=== PATIENT | female | born 1995 | race Caucasian/White ===

== ENCOUNTER 2019-01-05 09:23 | Emergency (ER) | payer MEDICAID ==
[~2019-01-05] VITALS: Ht 154.9 cm; Wt 53.3 kg
[2019-01-05 09:32] VITALS: BP 101/71
--- NOTE | 2019-01-05 09:40 | NUR ---
PT AMBULATED TO ER BED 01
--- NOTE | 2019-01-05 10:03 | NUR ---
GENERALIZED ABD PAIN, LOW BACK PAIN, PAINFUL URINATION AND INCREASED URINARY FREQUENCY X 5 DAYS. FOUL SMELLING BROWN VAGINAL DISCHARGE AND PELVIC PAIN X 8 DAYS. PT STATES PAIN 9/10 AT THIS TIME. DENIES N/V/D. DENIES FEVER. AFEBRILE AT THIS TIME. HX: DENIES RX: MOTRIN PRN LMP 12/02/18
[2019-01-05] MEDS ORDERED: cefTRIAXone 250 MG in LIDOCAINE MPF 1% - 5 mL VIAL 0.9 ML IM ONE (10:20)
--- NOTE | 2019-01-05 10:30 | NUR ---
Pelvic exam performed by Dr. Handley with NAZ Vickers present at bedside for entire examination. Patient tolerated procedure well. Patient assisted to position of comfort after examination.
[2019-01-05 10:36] LABS: BILIRUBIN,URINE NEGATIVE (NEGATIVE); BLOOD, URINE NEGATIVE (NEGATIVE); COLOR,URINE YELLOW (YELLOW); LEUKOCYTE ESTERASE ,URINE NEGATIVE (NEGATIVE); NITRITE, URINE NEGATIVE (NEGATIVE); UGLUCOSE NEGATIVE (NEGATIVE)
[2019-01-05 10:47] LABS: APPEARANCE,URINE HAZY (CLEAR); RBC,URINE NONE SEEN /HPF (0-5); WBC,URINE 0-5 /HPF (0-5)
--- NOTE | 2019-01-05 12:13 | NUR ---
Patient appears to be resting comfortably in bed. Vital Signs within normal limits. Pt states pain in lower abdomen is 3/10 at this time.
[2019-01-05] MEDS ORDERED: AZITHROMYCIN 250 MG TAB PO ONE (13:15)
[2019-01-05 13:37] VITALS: BP 122/61
--- NOTE | 2019-01-05 13:37 | NUR ---
ENCOURAGED TO F/U WITH OB WRITTEN IN HER DC PAPERS---ALSO TO HAVE HER SEXUAL PARTNER EXAMINED BY PMD BEFORE CONTINUING SEXUAL RELATIONS Patient discharged with v/s stable. Written and verbal after care instructions given and explained. Patient verbalized understanding. Ambulatory with steady gait. All questions addressed prior to discharge. Advised to follow up with PMD.
[2019-01-07 13:15] LABS: CHLAMYDIA TRACHOMATIS AMP DNA POSITIVE (NEGATIVE)
== END 2019-01-05 13:37 | disposition home or self-care (01) ==
LOC: MED 09:23
DX: R10.30 Lower abdominal pain, unspecified (principal); M54.5 Low back pain; R30.0 Dysuria; R35.0 Frequency of micturition; R11.0 Nausea; R63.0 Anorexia; F17.210 Nicotine dependence, cigarettes, uncomplicated
CPT/HCPCS: 36415; 76817; 81001; 81025; 84702; 87070; 87205; 87210; 87491; 96372; 99284; J0696; J2001; Q0092

== ENCOUNTER 2019-01-07 12:38 | Emergency (ER) | payer SELFPAY ==
[~2019-01-07] VITALS: Ht 154.9 cm; Wt 53.7 kg
[2019-01-07 12:46] VITALS: BP 109/54
--- NOTE | 2019-01-07 12:56 | NUR ---
PT BIB SELF TO THE ED FOR CHECK UPS. PT FOUND THAT SHE IS YESTERDAY. STATES CRAMPING PAIN OF 4/10. DENIES N/V/D. DENIES RECENT FEVER. LUNGS CLEAR. ABDOMEN SOFT, ROUND AND NON-TENDER. ACTIVE BOWEL SOUND. PT STATES SHE IS HAVING BROWNISH DISCHARGE MIED WITH BLOOD SOMETIMES FOR 8 DAYS. PT IS NOT TAKING ANY VITAMINS. DENIES NAY MEDICAL HX.
--- NOTE | 2019-01-07 13:06 | NUR ---
DR. HALLMAN BEDSIDE EVALUATING PT
--- NOTE | 2019-01-07 13:06 | NUR ---
PT BEING EVALUATED BY ER AT THIS TIME.
--- NOTE | 2019-01-07 13:26 | NUR ---
PT REFUSING BLOOD DRAW AT THIS TIME
[2019-01-07] MEDS ORDERED: AZITHROMYCIN 250 MG TAB PO ONE (13:35)
[2019-01-07] MEDS ORDERED: cefTRIAXone 250 MG in LIDOCAINE MPF 1% - 5 mL VIAL 0.9 ML IM ONE (13:35)
--- NOTE | 2019-01-07 13:50 | NUR ---
US TECH AT THE BEDSIDE.
[2019-01-07 15:04] VITALS: BP 110/52
--- NOTE | 2019-01-07 15:08 | NUR ---
Patient discharged with v/s stable. Written and verbal after care instructions given and explained. Patient alert, oriented and verbalized understanding of instructions. Ambulatory with steady gait. All questions addressed prior to discharge. ID band removed. Patient advised to follow up with PMD. Rx of IBU given. Patient educated on indication of medication including possible reaction and side effects. Opportunity to ask questions provided and answered.
== END 2019-01-07 15:08 | disposition home or self-care (01) ==
LOC: MED 12:38
DX: O02.0 Blighted ovum and nonhydatidiform mole (principal); O98.811 Other maternal infectious and parasitic diseases complicating pregnancy, first trimester; A74.9 Chlamydial infection, unspecified; Z3A.01 Less than 8 weeks gestation of pregnancy
CPT/HCPCS: 76801; 81002; 81025; 96372; 99284; J0696; J2001; Q0092

== ENCOUNTER 2019-01-22 23:10 | Emergency (ER) | payer SELFPAY ==
[~2019-01-22] VITALS: Ht 152.4 cm; Wt 54.2 kg
[2019-01-22 23:20] VITALS: BP 112/65
--- NOTE | 2019-01-22 23:25 | NUR ---
TO LOBBY A/W BED AMBULATORY
--- NOTE | 2019-01-22 23:50 | NUR ---
PATIENT AMBULATED TO ER BED 10.
--- NOTE | 2019-01-22 23:55 | NUR ---
PT IS A 23 Y/O FEMALE WHO PRESENTS TO THE ED C/O ABD PAIN. PT STATES THAT SYMPTOMS HAVE BEEN BOTHERING HER X2 DAYS. PT REPORTS 7/10 ACHING UPPER ABD PAIN THAT DOES NOT RADIATE. PT DENIES CP, SOB, REPORTS NAUSEA/DIARRHEA DENIES VOMITING. PT AWAKE AND ALERT, RR EVEN/UNLABORED. PT REPOSITIONED FOR COMFORT, BED IN LOWEST POSITION. ER MD DR. FU NOTIFIED. WILL CONTINUE TO MONITOR.
--- NOTE | 2019-01-22 23:59 | NUR ---
PATIENT UNABLE TO PROVIDE URINE AT THIS TIME.
[2019-01-23 00:48] LABS: BASOPHILS % (AUTO) 0.3 % (0.0-2.0); EOSINOPHILS # (AUTO) 0.2 K/uL (0-0.4); EOSINOPHILS % (AUTO) 2.8 % (0.0-4.0); HEMATOCRIT 37.6 % (36-48); HEMOGLOBIN 12.7 g/dL (12.0-16.0); LYMPHOCYTES % (AUTO) 16.6 % (20.5-51.1); MEAN CORPUSCULAR HEMOGLOBIN 32 pg (27-31); MEAN CORPUSCULAR HGB CONC 34 g/dL (33-37); MEAN CORPUSCULAR VOLUME 94.3 fL (80-94); MONOCYTES # (AUTO) 0.4 K/uL (0.8-1.0); MONOCYTES % (AUTO) 6.7 % (1.7-9.3); NEUTROPHILS # (AUTO) 4.5 K/uL (1.8-7.7); NEUTROPHILS % (AUTO) 73.6 % (42.2-75.2); PLATELET COUNT (AUTO) 214 K/uL (140-450); RED BLOOD CELL COUNT(AUTO) 3.98 MIL/uL (4.20-5.40); RED CELL DISTRIBUTION WIDTH 13.2 % (11.6-13.7); WHITE BLOOD COUNT (AUTO) 6.1 K/uL (4.8-10.8)
[2019-01-23 00:54] LABS: ANION GAP 11.4 (8-16); CARBON DIOXIDE 24.9 mmol/L (21-32); CREATININE 0.6 mg/dL (0.6-1.3); POTASSIUM 3.3 mmol/L (3.5-5.1)
[2019-01-23 00:59] LABS: ALBUMIN 3.4 g/dL (3.4-5.0); TOTAL BILIRUBIN 0.4 mg/dL (0.0-1.0)
[2019-01-23 01:39] LABS: APPEARANCE,URINE CLEAR (CLEAR); BILIRUBIN,URINE NEGATIVE (NEGATIVE); BLOOD, URINE NEGATIVE (NEGATIVE); COLOR,URINE YELLOW (YELLOW); LEUKOCYTE ESTERASE ,URINE NEGATIVE (NEGATIVE); NITRITE, URINE NEGATIVE (NEGATIVE); UGLUCOSE NEGATIVE (NEGATIVE)
[2019-01-23 01:43] LABS: RBC,URINE 0-5 /HPF (0-5); WBC,URINE 0-5 /HPF (0-5)
--- NOTE | 2019-01-23 02:18 | NUR ---
US AT BEDSIDE.
--- NOTE | 2019-01-23 03:00 | NUR ---
PT AROUSABLE TO VOICE, PT STATES SHE FEELS GOOD AND PAIN IS NOT AT BAD ANYMORE; STATES 3/10, STATES COPING.
--- NOTE | 2019-01-23 03:55 | NUR ---
Patient discharged with v/s stable. Patient acting appropriatly, states she wants to go home; states pain 0/10 at this time. Written and verbal after care instructions given and explained. Patient alert, oriented and verbalized understanding of instructions. Ambulatory with steady gait. All questions addressed prior to discharge. ID band removed. Patient advised to follow up with PMD. Rx of [place] given. Patient educated on indication of medication including possible reaction and side effects. Opportunity to ask questions provided and answered.
[2019-01-23 05:01] VITALS: BP 119/68
== END 2019-01-23 03:55 | disposition home or self-care (01) ==
LOC: MED 23:10
DX: O03.9 Complete or unspecified spontaneous abortion without complication (principal); Z3A.01 Less than 8 weeks gestation of pregnancy; Z79.891 Long term (current) use of opiate analgesic; Z79.2 Long term (current) use of antibiotics; Z79.1 Long term (current) use of non-steroidal anti-inflammatories (NSAID); Z79.899 Other long term (current) drug therapy
CPT/HCPCS: 36415; 76801; 80053; 81001; 81025; 84702; 85025; 99284; Q0092

== ENCOUNTER 2019-01-26 10:53 | Inpatient (IN) | payer MEDICAID, OTHER ==
[~2019-01-26] VITALS: Ht 154.9 cm; Wt 54.4 kg
[2019-01-26 10:54] VITALS: BP 100/61
--- NOTE | 2019-01-26 11:10 | NUR ---
ERMD AT BEDSIDE
--- NOTE | 2019-01-26 11:45 | NUR ---
C/O BILAT ACHING LOWER ABD PAIN 8/10 W/ NAUSEA X2 DAYS. PER PT, SHE HAS A MISCARRAIGE 1 MONTH AGO AND STARTED HAVING MILD VAGINAL BLEEDING AT HOME. SHE WAS SEEN AT URGENT CARE WHERE THEY REFFERED HER TO THE ED BECAUSE HER LABS WERE SHOWING hCG STILL. PT DENIED VOMITING/FEVER/DIARRHEA. SKIN IS COOL/PINK/DRY, VSS AT THIS TIME. BED IN LOW POSITION, SIDE RAIL UP X1.
--- NOTE | 2019-01-26 11:50 | NUR ---
URINE COLLECTED AND SENT TO LAB
[2019-01-26 12:02] LABS: APPEARANCE,URINE CLEAR (CLEAR); BILIRUBIN,URINE NEGATIVE (NEGATIVE); BLOOD, URINE 1+ (NEGATIVE); COLOR,URINE YELLOW (YELLOW); LEUKOCYTE ESTERASE ,URINE TRACE (NEGATIVE); NITRITE, URINE NEGATIVE (NEGATIVE); PH,URINE 5.5 (5.0-9.0); UGLUCOSE NEGATIVE (NEGATIVE)
[2019-01-26 12:11] LABS: BASOPHILS % (AUTO) 0.1 % (0.0-2.0); EOSINOPHILS # (AUTO) 0.1 K/uL (0-0.4); EOSINOPHILS % (AUTO) 1.7 % (0.0-4.0); HEMATOCRIT 37.3 % (36-48); HEMOGLOBIN 12.8 g/dL (12.0-16.0); LYMPHOCYTES # (AUTO) 1.1 K/uL (2.5-16.5); MEAN CORPUSCULAR HEMOGLOBIN 32 pg (27-31); MEAN CORPUSCULAR HGB CONC 34 g/dL (33-37); MEAN CORPUSCULAR VOLUME 94.3 fL (80-94); MONOCYTES # (AUTO) 0.3 K/uL (0.8-1.0); MONOCYTES % (AUTO) 5.2 % (1.7-9.3); PLATELET COUNT (AUTO) 196 K/uL (140-450); RED BLOOD CELL COUNT(AUTO) 3.96 MIL/uL (4.20-5.40); RED CELL DISTRIBUTION WIDTH 13.5 % (11.6-13.7); WHITE BLOOD COUNT (AUTO) 6.6 K/uL (4.8-10.8)
[2019-01-26 12:17] LABS: ANION GAP 15.7 (8-16); CARBON DIOXIDE 23.2 mmol/L (21-32); CREATININE 0.7 mg/dL (0.6-1.3); POTASSIUM 3.9 mmol/L (3.5-5.1)
[2019-01-26 12:22] LABS: ALBUMIN 3.6 g/dL (3.4-5.0); TOTAL BILIRUBIN 0.2 mg/dL (0.0-1.0)
--- NOTE | 2019-01-26 12:30 | NUR ---
PT RESTING IN BED, NO NEW NEEDS AT THIS TIME
[2019-01-26 13:01] LABS: RBC,URINE 0-5 /HPF (0-5)
--- NOTE | 2019-01-26 13:30 | NUR ---
PT AWAKE AND TALKING ON PHONE IN BED.
[2019-01-26] MEDS ORDERED: NACL 0.9% 1,000 ML IV SCH (14:54)
[2019-01-26] MEDS ORDERED: ONDANSETRON 4 MG/2 ML VIAL IM/IVP PRN (14:55)
[2019-01-26] MEDS ORDERED: MORPHINE SULFATE 2 MG/ML SYR IVP PRN (14:55)
[2019-01-26] MEDS ORDERED: LORazepam 2 MG/ML VIAL IM/IVP PRN (14:55)
[2019-01-26] MEDS ORDERED: ACETAMINOPHEN 325 MG TAB PO PRN (14:55)
[2019-01-26] MEDS ORDERED: DOCUSATE SODIUM 100 MG GELCAP PO PRN (14:55)
[2019-01-26] MEDS ORDERED: HYDROcodone/APAP 5/325 MG 1 TAB TAB PO PRN (14:55)
--- NOTE | 2019-01-26 15:00 | NUR ---
PT SPEAKING WITH DR. IBARRA AT BEDSIDE
[2019-01-26] MEDS ORDERED: MORPHINE SULFATE 2 MG/ML SYR IVP SCH (15:25)
[2019-01-26] MEDS ORDERED: ONDANSETRON 4 MG/2 ML VIAL IVP SCH (15:25)
[2019-01-26 15:41] LABS: PROTHROMBIN TIME 9.8 secs (10.8-13.4)
--- NOTE | 2019-01-26 15:45 | NUR ---
Patient will be admitted to care of DR. CEBALLOS. Admited to M/S. Will go to room 119B. Belongings list completed. Report to NAZ ZARAGOZA.
--- NOTE | 2019-01-26 15:55 | NUR ---
PT ARRIVED ON THE UNIT. PT IS STABLE VITALS HAVE BEEN TAKEN. ALL SAFETY MEASURES ARE IN PLACE WILL CONTINUE TO MONITOR.
[2019-01-26 16:06] LABS: CHOL/HDL RATIO 2.7 (1-4.5); PHOSPHORUS 4.3 mg/dL (2.5-4.9); THYROID STIMULATING HORMONE 0.76 uIU/mL (0.34-3.74)
[2019-01-26 16:12] LABS: BARBITURATE, URINE NEG. ng/ml (NEG <=200); BENZODIAZEPINE, URINE NEG. ng/mL (NEG <=200); CANNABINOID, URINE NEG. ng/mL (NEG <=50); COCAINE, URINE NEG. ng/mL (NEG <=300); OPIATE, URINE NEG. ng/mL (NEG <=2000); PHENCYCLIDINE SCREEN,URINE NEG. ng/mL (NEG <=25)
[2019-01-26 16:35] VITALS: BP 89/50
--- NOTE | 2019-01-26 17:35 | NUR ---
FREQUENT ROUNDING ON PATIENT PT IS STABLE AND IN NO APPARENT DISTRESS. ALL SAFETY MEASURES ARE IN PLACE. WILL CONTINUE TO MONITOR.
[2019-01-26] MEDS: LACTATED RINGERS 1,000 ML IV SCH (17:42)
[2019-01-26] MEDS ORDERED: NACL 0.9% 250 ML IV SCH (17:55)
[2019-01-26] MEDS: cefOXitin 2,000 MG in DEXTROSE 5% 100 ML IV SCH ×2 (18:29→23:46)
--- NOTE | 2019-01-26 18:30 | NUR ---
PLACED PT ON TELE MONITOR PER ORDERS. STATED THAT SHE WANTS TO PERFORM A PELVIC EXAM. WENT AND GOT ALL THE SUPPLIES FOR HER.
--- NOTE | 2019-01-26 19:20 | NUR ---
ENDORSED PT TO MILKING MACHINE TECHNICIAN NURSE. PT IS STABLE AND IN NO APPARENT DISTRESS. ALL SAFETY MEASURES ARE IN PLACE. IVF INFUSING IV SITE IS PATENT AND HAS NO SIGNS OF INFILTRATION OR INFLAMMATION.
--- NOTE | 2019-01-26 19:21 | NUR ---
RECEIVED BEDSIDE REPORT FROM DAY SHIFT NURSE. PT AAOX4. ABLE TO AMBULATE. NO SOB OR RESP DISTRESS NOTED ON RA. IV SITE LAC 20G, PATENT AND INTACT. STANDARD PRECAUTION IN PLACE. SKIN INTACT. WARM AND DRY TO TOUCH. POC REVIEW AND DISCUSSED. BED IN LOW POSITION, CALL LIGHT WITHIN REACH.
[2019-01-26 20:00] VITALS: BP 106/54
[2019-01-26] MEDS: CLINDAMYCIN 900 MG in DEXTROSE 5% 100 ML IV SCH (20:21)
--- NOTE | 2019-01-26 21:00 | NUR ---
GIVEN SCHEDULED MED DR. ORDERED. PT TOLERATED WELL.
--- NOTE | 2019-01-26 23:46 | NUR ---
GIVEN SCHEDULED MED DR ORDERED. PT TOLERATED WELL. WILL CONTINUE TO MONITOR.
[2019-01-27] VITALS: BP 106/54
[2019-01-27] MEDS: LACTATED RINGERS 1,000 ML IV SCH ×4 (00:45→18:18)
--- NOTE | 2019-01-27 02:15 | NUR ---
PT SLEEPING IN BED COMFORTABLY. NO S/S OF SOB OR ANY RESP DISTRESS NOTED. BED IN LOW POSITION. CALL LIGHT WITHIN REACH.
[2019-01-27 04:00] VITALS: BP 111/44
[2019-01-27] MEDS: CLINDAMYCIN 900 MG in DEXTROSE 5% 100 ML IV SCH ×3 (05:01→22:44)
--- NOTE | 2019-01-27 05:01 | NUR ---
GIVEN SCHEDULE MEDS. PT TOLERATED WELL.
[2019-01-27] MEDS: cefOXitin 2,000 MG in DEXTROSE 5% 100 ML IV SCH ×2 (06:08→18:18)
--- NOTE | 2019-01-27 07:05 | NUR ---
ENDORSED PT TO DAY SHIFT NURSE. PT IN STABLE CONDITION.
--- NOTE | 2019-01-27 07:23 | NUR ---
RECEIVED BEDSIDE REPORT FROM BUCKET HOOKER NURSE ZOYA AT PT BEDSIDE. PT AAOX4. ABLE TO AMBULATE. NO SOB OR RESP DISTRESS NOTED ON RA. IV SITE LAC 20G, PATENT AND INTACT. PT VERBALIZED PAIN TOLERABLE TO ABD. NO PAIN MEDICATIONS WANTED AT THIS TIME. STANDARD PRECAUTION IN PLACE. SKIN INTACT. WARM AND DRY TO TOUCH. DISCUSSED POC WITH PT AND PT VERBALIZED UNDERSTANDING. PT NPO SINCE AWAITING SURGERY THIS MORNING. BED IN LOW POSITION, CALL LIGHT WITHIN REACH. WILL ROUND FREQUENTLY ON PT.
[2019-01-27 07:35] LABS: BASOPHILS % (AUTO) 0.3 % (0.0-2.0); EOSINOPHILS # (AUTO) 0.1 K/uL (0-0.4); EOSINOPHILS % (AUTO) 3.3 % (0.0-4.0); HEMATOCRIT 34.3 % (36-48); HEMOGLOBIN 11.7 g/dL (12.0-16.0); LYMPHOCYTES # (AUTO) 1.1 K/uL (2.5-16.5); LYMPHOCYTES % (AUTO) 28.2 % (20.5-51.1); MEAN CORPUSCULAR HEMOGLOBIN 32 pg (27-31); MEAN CORPUSCULAR HGB CONC 34 g/dL (33-37); MEAN CORPUSCULAR VOLUME 93.6 fL (80-94); MONOCYTES # (AUTO) 0.3 K/uL (0.8-1.0); MONOCYTES % (AUTO) 8.5 % (1.7-9.3); NEUTROPHILS # (AUTO) 2.3 K/uL (1.8-7.7); NEUTROPHILS % (AUTO) 59.7 % (42.2-75.2); PLATELET COUNT (AUTO) 165 K/uL (140-450); RED BLOOD CELL COUNT(AUTO) 3.67 MIL/uL (4.20-5.40); RED CELL DISTRIBUTION WIDTH 13.3 % (11.6-13.7); WHITE BLOOD COUNT (AUTO) 3.9 K/uL (4.8-10.8)
[2019-01-27 08:00] VITALS: BP 97/52
[2019-01-27 08:39] LABS: MAGNESIUM 1.9 mg/dL (1.8-2.4); PHOSPHORUS 4.7 mg/dL (2.5-4.9)
[2019-01-27 08:41] LABS: ANION GAP 13.3 (8-16); CARBON DIOXIDE 23.9 mmol/L (21-32); POTASSIUM 3.2 mmol/L (3.5-5.1)
[2019-01-27 08:42] LABS: CREATININE 0.8 mg/dL (0.6-1.3)
--- NOTE | 2019-01-27 08:47 | NUR ---
PATIENT HAS BEEN SCREENED AND CATEGORIZED LOW NUTRITION RISK. PATIENT WILL BE SEEN WITHIN 7 DAYS OF ADMISSION. 02/02/[address]
[2019-01-27] MEDS: OXYTOCIN 10 UNITS/ML VIAL ONE ×2 (08:59→11:45)
[2019-01-27] MEDS: LACTOBACILLUS RHAMNOSUS GG 1 EACH CAP PO SCH (09:00)
--- NOTE | 2019-01-27 09:46 | NUR ---
PT TAKEN TO OR FOR SURGERY. PT LEFT IN STABLE CONDITION.
[2019-01-27] MEDS ORDERED: fentaNYL 0.05 MG/ML VIAL ONE (10:08)
[2019-01-27] MEDS ORDERED: DESFLURANE 240 ML BTL INH ONE ×2 (10:10)
[2019-01-27] MEDS ORDERED: DEXAMETHASONE 4 MG/ML VIAL ONE ×2 (10:10)
[2019-01-27] MEDS ORDERED: ONDANSETRON 4 MG/2 ML VIAL ONE ×2 (10:10)
[2019-01-27] MEDS ORDERED: ROCURONIUM 50 MG/5 ML VIAL IV ONE ×2 (10:10)
[2019-01-27] MEDS ORDERED: SUCCINYLCHOLINE CHLORIDE 200 MG/10 ML VIAL IVP ONE ×2 (10:10)
[2019-01-27] MEDS ORDERED: KETOROLAC 30 MG/ML VIAL ONE ×2 (10:10)
[2019-01-27] MEDS ORDERED: PROPOFOL 200 MG/20 ML VIAL IV ONE ×2 (10:10)
[2019-01-27] MEDS ORDERED: HYDROmorphone PFS 2 MG/ML SYR ONE (10:51)
--- NOTE | 2019-01-27 11:26 | NUR ---
PT IN SURGERY. AWAITING FOR PT TO ARRIVE BACK ON UNIT.
[2019-01-27] MEDS ORDERED: HYDROmorphone 1 MG/ML AMP IVP PRN (12:25)
[2019-01-27] MEDS ORDERED: POTASSIUM CHLORIDE 10 MEQ TABER PO SCH (12:30)
[2019-01-27 13:12] VITALS: BP 103/74
--- NOTE | 2019-01-27 13:12 | NUR ---
PT RETURNED FROM SURGERY. VITALS ARE: TEMP-97.4, HR-54, BP-104/74, RR-16, O2 SAT-98%, PAIN-10/10. PT VITALS STABLE AND WITHIN BASELINE. WILL MEDICATE PT WITH APPROPRIATE PAIN MED FOR HER PAIN.
--- NOTE | 2019-01-27 13:32 | NUR ---
DUE TO PT HR BEING TEDDY AND BP ON LOWER SIDE, PER MD ORDERS, TORADOL WILL BE GIVEN FOR PAIN AT THIS TIME.
[2019-01-27] MEDS: KETOROLAC 30 MG/ML VIAL IVP PRN (14:02)
--- NOTE | 2019-01-27 15:57 | NUR ---
PT RESTING IN BED WITH AT BEDSIDE. WILL CONTINUE TO ROUND FREQUENTLY ON PT. BED IN LOW POSITION, CALL LIGHT WITHIN REACH.
[2019-01-27 16:00] VITALS: BP 92/48
--- NOTE | 2019-01-27 18:06 | NUR ---
PT ASLEEP IN BED. AT BEDSIDE. WILL CONTINUE TO MONITOR PT CLOSELY. BED IN LOW POSITION, CALL LIGHT WITHIN REACH.
--- NOTE | 2019-01-27 19:34 | NUR ---
ENDORSED PT TO NURSE OB FOR CONTINUITY OF CARE. PT IN STABLE CONDITION AT THIS TIME.
--- NOTE | 2019-01-27 19:35 | NUR ---
RECEIVED BEDSIDE REPORT FROM AM SHIFT NURSE. PT AAOX4. PT IN BED S/P LAP D/C DUE TO MISCARRIAGE. NO SOB OR RESP DISTRESS NOTED ON RA. IV SITE LAC 20G, PATENT AND INTACT.PAIN MEDS WAS GIVEN WAS GIVEN EARLIER. NO COMPLAINTS OF PAIN AT THIS TIME. W/ 2 LAP INCISIONS ON ABDOMEN, W/ DRESSING IN PLACE, INTACT. DISCUSSED POC STILL IN NPO POST SURGERY. BED IN LOW POSITION, CALL LIGHT WITHIN REACH. WILL MONITOR PT
[2019-01-27 20:00] VITALS: BP 93/52
[2019-01-28] VITALS: BP 95/54
--- NOTE | 2019-01-28 00:01 | NUR ---
C/O OF 7/10 MODERATE PAIN ON SURGICAL SITE, ABDOMEN, MEDICATED W/ DILAUDID
[2019-01-28] MEDS: LACTATED RINGERS 1,000 ML IV SCH (00:05)
--- NOTE | 2019-01-28 00:45 | NUR ---
REASSESSED PATIENT, PAIN DECREASED,. WILL MONITOR PT.
--- NOTE | 2019-01-28 02:00 | NUR ---
FREQUENT ROUNDING DONE, PT SLEEPING AT THIS TIME, NO COMPLAINTS. PT AMBULATORY ABLE TO AMBULATE TO THE BATHROOM. Addendum: 01/28/19 at 0444 by Minerva Saunders RN DELETE NOTE. WRONG PATIENT
--- NOTE | 2019-01-28 02:01 | NUR ---
FREQUENT ROUNDING DONE, PT SLEEPING AT THIS TIME, NO COMPLAINTS. EMPTIED THE WALKER CATHETER
[2019-01-28 04:00] VITALS: BP 112/45
--- NOTE | 2019-01-28 04:04 | NUR ---
VITALS TAKEN, LOW BP AT 95/54 MMHG. PT;S BP HAS BEEN IN THE LOW SIDE, ENCOURAGED TO SIT UP ON BED WILL RETAKE BP LATER
[2019-01-28] MEDS: KETOROLAC 30 MG/ML VIAL IVP PRN (04:38)
[2019-01-28] MEDS: CLINDAMYCIN 900 MG in DEXTROSE 5% 100 ML IV SCH ×3 (05:30→16:38)
[2019-01-28 06:28] LABS: CHLAMYDIA TRACHOMATIS AMP DNA Negative (Negative)
[2019-01-28] MEDS: cefOXitin 2,000 MG in DEXTROSE 5% 100 ML IV SCH ×2 (07:07→18:17)
--- NOTE | 2019-01-28 07:15 | NUR ---
ENDORSED TO NEXT SHIFT FOR CONTINUITY OF CARE. PT STABLE AT THIS TIME
--- NOTE | 2019-01-28 07:20 | NUR ---
RECEIVED PT FROM DIRECT SELLING COUNSELOR NURSE, PT IS AWAKE AND LYING ON THE BED, AMBULATORY, SAFETY PRECAUTION ENFORCED, IV LINE ON THE LEFT AC G. 20 WITH LR INFUSING AT 100ML/HR, INTACT, PT VERBALIZED A PAIN RATE OF 8/10 ON THE ABDOMEN, NO SOB NOTED, WILL MEDICATE AND MONITOR PT.
--- NOTE | 2019-01-28 07:50 | NUR ---
PT IS AWAKE AND VITAL SIGNS CHECKED, BP IS 92/41, PULSE IS 63, O2 SATURATION IS 98%, TEMPERATURE IS 98.6, RESPIRATION SI 18/MIN ON ROOM AIR, DR. ALBERT WAS INFORMED OF BP RESULT AND MD SAID THAT SHE WILL PLACE AN ORDER FOR A BOLUS OF IVF. SURGICAL INCISIONS INTACT AND NO DRAINAGE, WALKER CATHETER IN PLACE. NO SIGN OF DISTRESS NOTED AND WILL MONITOR PT.
[2019-01-28 08:00] VITALS: BP 92/41
[2019-01-28] MEDS ORDERED: NACL 0.9% 250 ML IV SCH (08:20)
[2019-01-28] MEDS: LACTOBACILLUS RHAMNOSUS GG 1 EACH CAP PO SCH (08:29)
--- NOTE | 2019-01-28 08:35 | NUR ---
PT IS AWAKE AND JUST FINISHED WITH HERB CLEAR LIQUIID DIET TRAY, A 250ML OF NS BOLUS AND ORAL MEDICATIONS WERE GIVEN, WILL MONITOR PT.
[2019-01-28 09:56] LABS: BASOPHILS % (AUTO) 0.1 % (0.0-2.0); EOSINOPHILS # (AUTO) 0.1 K/uL (0-0.4); EOSINOPHILS % (AUTO) 1.6 % (0.0-4.0); HEMATOCRIT 35.8 % (36-48); HEMOGLOBIN 12.2 g/dL (12.0-16.0); LYMPHOCYTES % (AUTO) 17.2 % (20.5-51.1); MEAN CORPUSCULAR HEMOGLOBIN 32 pg (27-31); MEAN CORPUSCULAR HGB CONC 34 g/dL (33-37); MEAN CORPUSCULAR VOLUME 94.3 fL (80-94); MONOCYTES # (AUTO) 0.4 K/uL (0.8-1.0); MONOCYTES % (AUTO) 6.6 % (1.7-9.3); NEUTROPHILS # (AUTO) 4.3 K/uL (1.8-7.7); NEUTROPHILS % (AUTO) 74.5 % (42.2-75.2); PLATELET COUNT (AUTO) 169 K/uL (140-450); RED CELL DISTRIBUTION WIDTH 13.2 % (11.6-13.7); WHITE BLOOD COUNT (AUTO) 5.8 K/uL (4.8-10.8)
[2019-01-28 10:26] LABS: ANION GAP 10.6 (8-16); CARBON DIOXIDE 25.6 mmol/L (21-32); CREATININE 0.9 mg/dL (0.6-1.3); MAGNESIUM 1.7 mg/dL (1.8-2.4); PHOSPHORUS 3.7 mg/dL (2.5-4.9); POTASSIUM 3.2 mmol/L (3.5-5.1)
--- NOTE | 2019-01-28 10:35 | NUR ---
WAKLER CATHETER WAS REMOVED NOW, DRAINED 800ML OF URINE IN THE WALKER BAG. VITAL SIGNS RE-CHECKED AND BP IS 91/51, PULSE IS 64, O2 SATURATION IS 98%, NO SIGN OF DISTRESS NOTED AND PT DENIES PAIN AT THIS TIME.
--- NOTE | 2019-01-28 11:50 | NUR ---
CLEOCIN WAS GIVEN TO PT NOW VIA IVPB. WILL MONITOR PT.
[2019-01-28 12:00] VITALS: BP 91/48
--- NOTE | 2019-01-28 14:00 | NUR ---
PT WAS ASSISTED TO AMBULATE IN THE HALLWAY, NO SOB NOTED.
[2019-01-28] MEDS ORDERED: POTASSIUM CHLORIDE 10 MEQ TABER PO SCH (15:00)
[2019-01-28] MEDS ORDERED: MAGNESIUM OXIDE 400 MG TAB PO SCH (15:00)
--- NOTE | 2019-01-28 15:38 | NUR ---
POTASSIUM AND MAGNESIUM ORAL TABLETS WERE GIVEN NOW.
[2019-01-28 16:00] VITALS: BP 109/51
--- NOTE | 2019-01-28 16:38 | NUR ---
PT WAS GIVEN DUE CLEOCIN IVPB NOW.
--- NOTE | 2019-01-28 18:17 | NUR ---
MEFOXIN IVPB WAS GIVEN TO PT NOW.
--- NOTE | 2019-01-28 19:15 | NUR ---
ENDORSED PT TO HYDROLOGIC MODELER NURSE FOR CONTINUITY OF CARE.
--- NOTE | 2019-01-28 19:16 | NUR ---
RECEIVED PT FROM AM SHIFT NURSE, PT IS AWAKE , AO O X 4, AND LYING ON THE BED, AMBULATORY, SAFETY PRECAUTION ENFORCED, IV LINE ON THE LEFT AC G. 20 WITH LR INFUSING AT 100ML/HR, INTACT, PT NO COMPLAINTS OF PAIN ON THE ABDOMINAL SITE, S/P LAP D AND C. NO SOB NOTED, WILL MONITOR PT.
--- NOTE | 2019-01-28 21:00 | NUR ---
RICKIE MCCORMICK, USED INDUSTRIAL ENGINEERING TECHNICIAN [id number] AMILCAR, INFORMED HER THE BENEFITS AND RISKS AND SIDE EFFECTS. PT VERBALIZED UNDERSTANDING Addendum: 01/28/19 at 2106 by Minerva Saunders RN ADMINISTERED AT 2032
[2019-01-28] MEDS ORDERED: IBUPROFEN 600 MG TAB PO PRN (22:00)
[2019-01-29] VITALS: BP 103/50
--- NOTE | 2019-01-29 04:00 | NUR ---
L AC G 20, THROMBOPHLEBITIS NOTED, SWOLLEN. D/ C IVF SITE AND STARTED A NEW ONE ON R HAND G 20. PATENT, INFUSING WELL
--- NOTE | 2019-01-29 04:50 | NUR ---
PT SLEEPING AT THIS TIME, WENT TO THE BATHROOM,AMBULATORY NO COMPLAINTS OF PAIN
[2019-01-29] MEDS ORDERED: methylPREDNISolone SS 125 MG/2 ML VIAL IVP SCH (05:00)
--- NOTE | 2019-01-29 05:15 | NUR ---
VERIFIED W/ DR. MUKHERJEE SOLUMEDROL ORDER. SAID THAT THEY DONT HAVE A SOLUMEDROL ORDER FOR THIS PATIENT. INFORMED TO PLEASE D/C IT.
[2019-01-29] MEDS: cefOXitin 2,000 MG in DEXTROSE 5% 100 ML IV SCH (05:31)
[2019-01-29 06:10] LABS: ANION GAP 13.5 (8-16); CARBON DIOXIDE 23.3 mmol/L (21-32); CREATININE 0.7 mg/dL (0.6-1.3); POTASSIUM 3.8 mmol/L (3.5-5.1)
[2019-01-29 06:15] VITALS: BP 110/45
[2019-01-29 06:21] LABS: BASOPHILS % (AUTO) 0.2 % (0.0-2.0); EOSINOPHILS # (AUTO) 0.2 K/uL (0-0.4); EOSINOPHILS % (AUTO) 3.9 % (0.0-4.0); HEMATOCRIT 34.1 % (36-48); HEMOGLOBIN 11.7 g/dL (12.0-16.0); MEAN CORPUSCULAR HEMOGLOBIN 32 pg (27-31); MEAN CORPUSCULAR HGB CONC 34 g/dL (33-37); MEAN CORPUSCULAR VOLUME 93.7 fL (80-94); MONOCYTES # (AUTO) 0.4 K/uL (0.8-1.0); NEUTROPHILS # (AUTO) 2.6 K/uL (1.8-7.7); NEUTROPHILS % (AUTO) 60.9 % (42.2-75.2); PLATELET COUNT (AUTO) 151 K/uL (140-450); RED BLOOD CELL COUNT(AUTO) 3.64 MIL/uL (4.20-5.40); RED CELL DISTRIBUTION WIDTH 13.2 % (11.6-13.7); WHITE BLOOD COUNT (AUTO) 4.2 K/uL (4.8-10.8)
[2019-01-29 06:24] LABS: MAGNESIUM 1.9 mg/dL (1.8-2.4); PHOSPHORUS 3.9 mg/dL (2.5-4.9)
--- NOTE | 2019-01-29 06:59 | NUR ---
PT AWAKE, A, O X 4, PT IN STABLE CONDITION, WILL ENDORSE TO NEXT SHIFT FOR CONTINUITY OF CARE
--- NOTE | 2019-01-29 07:40 | NUR ---
RECEIVED REPORT FROM REPAIRER HAIRSPRING NURSE. AAOX4, LYING IN BED. LUNG SOUNDS CLEAR THROUGHOUT UPON AUSCULTATION. STOMACH FLAT, SOFT AND NON-DISTENDED. IV RT HAND 22 GA RUNNING IVF PER ORDER. IV DRESSING INTACT, CLEAN AND DRY. NO REPORTS OF VAGINAL BLEEDING. REPORTED PAIN RATE 4/10 TO ABDOMEN, WILL MEDICATE. NO EDEMA NOTED AT THIS TIME. SKIN COLOR IS APPROPRIATE TO ETHNICITY, WARM TO TOUCH. INCISION DRESSING TO ABDOMEN INTACT, CLEAN AND DRY. DISCUSSED PLAN OF CARE WITH PT. PT VERBALIZED UNDERSTANDING. SAFETY MEASURES IN PLACE, BED ON LOW POSITION. CALL LIGHT WITHIN REACH.
[2019-01-29] MEDS: metroNIDAZOLE 500 MG TAB PO SCH ×2 (08:22→12:44)
[2019-01-29] MEDS: LACTOBACILLUS RHAMNOSUS GG 1 EACH CAP PO SCH (08:22)
--- NOTE | 2019-01-29 08:22 | NUR ---
PT VERBALIZED PAIN RATE OF 4/10 TO ABDOMEN. MEDICATION GIVEN TO PT, WILL REASSESS WITHIN 1 HOUR.
--- NOTE | 2019-01-29 09:50 | NUR ---
PT AAOX4, SITTING UP IN BED. BOYFRIEND IS AT BEDSIDE. NO C/O PAIN AT THIS TIME.
[2019-01-29] MEDS ORDERED: METR500T1 PO (10:49)
[2019-01-29] MEDS ORDERED: DOXY100C9 PO (10:49)
[2019-01-29] MEDS ORDERED: IBUP-2213 PO (10:49)
[2019-01-29] MEDS ORDERED: LACT10CA1 PO (10:49)
[2019-01-29] MEDS ORDERED: ACET-9525 PO (10:49)
--- NOTE | 2019-01-29 13:00 | NUR ---
DISCHARGE INSTRUCTIONS, MEDICATIONS AND INCISION CARE GIVEN AND EXPLAINED TO PT USING BLUE PHONE WITH PATCH SANDER NELLY #[id number]. PT VERBALIZED UNDERSTANDING AND QUESTIONS WERE CLARIFIED. MEDICATIONS WERE GIVEN PER ORDER. IV DISCONTINUED, CATHETER INTACT. NO ACTIVE BLEEDING NOTED, PRESSURE APPLIED TO AREA. NO C/O PAIN AT THIS TIME. WILL CONTINUE TO MONITOR.
--- NOTE | 2019-01-29 14:00 | NUR ---
PT DISCHARGED, ACCOMPANIED BY TANYARD WORKER AND SPOUSE WITH STEADY GAIT. OFFERED W/C BUT PT REFUSED. ALL BELONGINGS WITH PT. NAME BAND REMOVED. PT IS STABLE.
[2019-01-30] MEDS ORDERED: methylPREDNISolone SS 40 MG/ML VIAL IVP SCH (09:00)
== END 2019-01-29 14:00 | disposition home or self-care (01) | DRG 770 ==
LOC: MED 10:53 → MTU 14:54
PROVIDERS: ADMIT General Practice; ATTEND General Practice
PROC: 10D18ZZ Extraction of Products of Conception, Retained, Via Natural or Artificial Opening Endoscopic (ICD-10-PCS; principal; 2019-01-27 10:00)
DX: O03.4 Incomplete spontaneous abortion without complication (principal); O23.41 Unspecified infection of urinary tract in pregnancy, first trimester; O99.011 Anemia complicating pregnancy, first trimester; D64.9 Anemia, unspecified
CPT/HCPCS: 36415; 76817; 80048; 80053; 80305; 81001; 81025; 82150; 83036; 83690; 83735; 83880; 84100; 84443; 84702; 85025; 85610; 85730; 87081; 87086; 87491; 88305; 96374; 96375; 99285; J0330; J0694; J1050; J1100; J1170; J1885; J2270; J2405; J2590; J2704; J3010; J3490; J7030; J7060; J7120; Q0092

== ENCOUNTER 2019-02-03 10:54 | Emergency (ER) | payer MEDICAID, OTHER ==
[~2019-02-03] VITALS: Ht 157.5 cm; Wt 52.3 kg
[~2019-02-03 10:54] MED LIST: ACET-9525 PO; DOXY100C9 PO; IBUP-2213 PO; LACT10CA1 PO; METR500T1 PO
--- NOTE | 2019-02-03 10:59 | NUR ---
PT AMBULATED TO ER BED 11
[2019-02-03 11:00] VITALS: BP 119/57
--- NOTE | 2019-02-03 11:09 | NUR ---
PT PRESENTS TO ED FOR WOUND CHECK S/P SURGERY FOR MOLAR X1 WEEK. DRESSING TO ABD INTACT. -FEVER, -NAUSEA, -VOMITING. DENIES ANY PAIN AT THIS TIME. ER MD TO EVALUATE PT.
--- NOTE | 2019-02-03 11:11 | NUR ---
DR FU AT BEDSIDE EVALUATING PT
[2019-02-03 11:34] VITALS: BP 112/60
--- NOTE | 2019-02-03 11:34 | NUR ---
Patient discharged with v/s stable. Written and verbal after care instructions given and explained. Patient verbalized understanding. Ambulatory with steady gait. All questions addressed prior to discharge. Advised to follow up with PMD.
== END 2019-02-03 11:34 | disposition home or self-care (01) ==
LOC: MED 10:54
DX: Z48.01 Encounter for change or removal of surgical wound dressing (principal); Z87.59 Personal history of other complications of pregnancy, childbirth and the puerperium; Z79.899 Other long term (current) drug therapy
CPT/HCPCS: 99281